=== PATIENT | female | born 1975 | race Caucasian/White ===

== ENCOUNTER → 2020-08-10 07:30 | Outpatient (CLI) | payer OTHER, BC, SELFPAY ==
--- NOTE | ~2020-08-10 | MM_ITS ---
EXAMINATION: MM scrn andres implant BI w tara HISTORY: Screening mammogram TECHNIQUE: Craniocaudal and mediolateral oblique 3-D tomosynthesis images with implant displacement a nd synthetic 2-D images were generated. Craniocaudal and mediolateral oblique views of the breasts wi thout implant displacement were obtained using full field digital mammography. CAD analysis was submi tted and interpreted. COMPARISON: 10/23/2018, 01/16/2015, 01/10/2015 BREAST PARENCHYMAL COMPOSITION: The breasts are heterogeneously dense, which may obscure small masses . FINDINGS: RIGHT BREAST: An asymmetry is present in the anterior third of the inner breast 4 cm from the nipple on the implant displaced craniocaudal view. LEFT BREAST: There is no evidence of suspicious mass, calcification, or architectural distortion to s uggest malignancy. There has been no significant interval change. IMPRESSION: 1. Right breast asymmetry on the implant displaced craniocaudal view. 2. Additional mammographic views and possible breast ultrasound are recommended. BI-RADS Category 0: Incomplete: Needs additional imaging evaluation. Reviewed, dictated and finalized at location A. IMPRESSION: 1. Right breast asymmetry on the implant displaced craniocaudal view. 2. Additional mammographic views and possible breast ultrasound are recommended . BI-RADS Category 0: Incomplete: Needs additional imaging evaluation.
== END ==
PROVIDERS: Visit Provider Obstetrics & Gynecology
DX: Z12.31 Encounter for screening mammogram for malignant neoplasm of breast (principal)
CPT/HCPCS: 77063; 77067

== ENCOUNTER 2021-01-01 16:16 | Emergency (ER) | payer OTHER, BC, SELFPAY ==
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
[2021-01-01 16:20] VITALS: BP 167/90; PULSE 87; RESP 17; TEMP 37.3; O2SAT 100
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
[2021-01-01] MEDS: diazePAM (*CRX) 5 MG TABLET PO (17:24)
== END 2021-01-01 17:50 | disposition home or self-care (01) ==
PROVIDERS: Emergency Provider Emergency Medicine; PCP Internal Medicine
DX: S16.1XXA Strain of muscle, fascia and tendon at neck level, initial encounter (principal); R10.9 Unspecified abdominal pain; R07.89 Other chest pain; I10 Essential (primary) hypertension; V49.40XA Driver injured in collision with unspecified motor vehicles in traffic accident, initial encounter
CPT/HCPCS: 71046; 72125; 99284; A9270

== ENCOUNTER → 2021-10-19 12:26 | Outpatient (CLI) | payer OTHER, BC, SELFPAY ==
--- NOTE | ~2021-10-19 | MM_ITS ---
EXAMINATION: MM scrn andres implant BI w tara HISTORY: Screening mammogram TECHNIQUE: Craniocaudal and mediolateral oblique 3-D tomosynthesis images with implant displacement a nd synthetic 2-D images were generated. Craniocaudal and mediolateral oblique views of the breasts wi thout implant displacement were obtained using full field digital mammography. CAD analysis was submi tted and interpreted. COMPARISON: Comparison to multiple prior studies sequentially, with oldest reviewed study dated 10/10. BREAST PARENCHYMAL COMPOSITION: The breasts are heterogeneously dense, which may obscure small masses . FINDINGS: There is no evidence of suspicious mass, calcification, or architectural distortion to sugg est malignancy in either breast. There has been no suspicious interval change. IMPRESSION: 1. No mammographic evidence of malignancy. 2. Recommend routine screening mammography in one year. BI-RADS Category 1: Negative Reviewed, dictated and finalized at location A. ULANT DIPPER
== END ==
PROVIDERS: Visit Provider Obstetrics & Gynecology
DX: Z12.31 Encounter for screening mammogram for malignant neoplasm of breast (principal)
CPT/HCPCS: 77063; 77067

== ENCOUNTER 2021-10-31 16:29 | Emergency (ER) | payer OTHER, BC, SELFPAY ==
[2021-10-31] VITALS (11 sets, daily range): BP systolic 147–167; BP diastolic 72–98; PULSE 64–78; RESP 16–20; TEMP 36.4–37; O2SAT 98–100
--- NOTE | ~2021-10-31 | XR_ITS ---
EXAMINATION: XR chest 2V 10/31/2021 17:14 INDICATION: Left chest pain PROCEDURE: 2 view chest COMPARISON: 01/01/2021 FINDINGS: The lungs are clear. The cardiomediastinal silhouette is within normal limits. There are no pleural effusions. There is no pneumothorax suspected. There is a healed left fifth rib fracture . IMPRESSION: 1: NO ACUTE CARDIOPULMONARY DISEASE. Reviewed, dictated and finalized at location A. CHISE FIELD CONSULTANT
--- NOTE | 2021-10-31 16:47 | ECG_ITS ---
Measurements Intervals [place] Rate: 68 P: 70 UT: 142 QRS: 51 QRSD: 92 T: 50 QT: 404 QTc: 432 Interpretive Statements SINUS RHYTHM NORMAL ECG Electronically Signed On 11-01-2021 8:04:36 STRAND GALVANIZER by Eric Alvarenga D.O.
[2021-10-31 17:13] LABS: Basophils Percent Auto 0.4 % (0.2-1.2); Eosinophils Absolute Auto 0.2 K/mm3 (0-0.3); Eosinophils Percent Auto 2.5 % (0-4.4); Hemoglobin 14.8 g/dL (12.0-15.0); Immature Granulocyte Absolute 0.03 K/mm3 (0.00-0.031); Immature Granulocyte Percent A 0.3 % (0-0.5); Lymphocytes Absolute Auto 2.59 K/mm3 (0.9-3.2); Mean Corpuscular HGB Conc 34.4 g/dl (32-36); Mean Corpuscular Hemoglobin 30.3 pg (26-34); Mean Corpuscular Volume 88.1 fl (80-100); Mean Platelet Volume 10.6 fl (7.4-10.4); Monocytes Absolute Auto 0.6 K/mm3 (0.1-0.6); Monocytes Percent Auto 7.1 % (2.6-8.5); Neutrophils Absolute Auto 5.4 K/mm3 (1.3-6.7); Neutrophils Percent Auto 60.7 % (45.5-73.1); Platelet Count Result 209 k/mm3 (150-375); Red Blood Count 4.88 M/mm3 (4.2-5.4); White Blood Count 8.9 K/mm3 (4.5-10.0)
[2021-10-31 17:22] LABS: Partial Thromboplastin Time 25.2 SECONDS (22.3-36.8); Prothrombin Time 12.7 Seconds (11.1-14.7)
[2021-10-31 17:30] LABS: Alanine Aminotransferase 17 U/L (4-35); Albumin Level 4.5 g/dL (3.5-5.1); Alkaline Phosphatase 102 U/L (38-126); Anion Gap 9 mmol/L (8-16); Aspartate Amino Transferase 27 U/L (14-36); Bilirubin,Total 0.5 mg/dL (0.2-1.3); Blood Urea Nitrogen 16 mg/dL (7-17); Calcium 9.1 mg/dL (8.4-10.2); Carbon Dioxide 29 mmol/L (22-30); Chloride 100 mmol/L (98-107); Estimated CRCL calculation 67 ml/min; Estimated Glomerular Filt Rate > 60; Glucose 99 mg/dL (65-110); Lipase 150 U/L (23-300); Potassium 3.8 mmol/L (3.4-5.0); Sodium 138 mmol/L (137-145)
[2021-10-31 17:42] LABS: Troponin I < 0.012 ng/mL (0.000-0.034)
--- NOTE | 2021-10-31 19:43 | ED.CHESTPAIN ---
HPI - Chest Pain General Chief Complaint: Chest Pain Stated Complaint: chest pain Time Seen by Provider: 10/31/21 19:43 Source: patient Mode of arrival: ambulatory Limitations: no limitations History of Present Illness HPI narrative: Patient is a 46-year-old female complain of chest pain, midsternal, tightness, 6 out of 10, radiating to left upper extremity that started 2 days ago. Patient also states that her blood pressure has been elevated for the past week. Patient states that her mother recently and all the symptoms started right after. Patient states that she has seen her primary care physician and was prescribed Xanax and diagnosed with anxiety. Patient also states that her primary care physician added carvedilol this past Friday for her blood pressure, she was on lisinopril. Patient has a history of hypertension. Patient denies any shortness of breath, abdominal pain, nausea, vomiting, diaphoresis, fever or chills. Related Data Home Medications Medication Instructions Recorded Confirmed multivitamin 1 tablet PO DAILY 05/31/20 12/01/20 Allergies Allergy/AdvReac Type Severity Reaction Status Date / Time acetaminophen Allergy Unknown NAUSEA Verified 12/01/20 14:33 hydrocodone Allergy Unknown NAUSEA Verified 10/31/21 19:50 propoxyphene AdvReac Unknown NAUSEA Verified 10/31/21 19:50 OXYCODONE HCL Allergy Mild NAUSEA Uncoded 10/31/21 19:50 Review of Systems Review of Systems: All systems reviewed & are unremarkable except as noted in HPI and below Constitutional: Constitutional: Denies body ache(s), Denies chills, Denies excessive sweating, Denies fatigue, Denies fever(s), Denies headache(s), Denies lethargy, Denies malaise, Denies weakness and Denies weight loss Eyes: Eyes: Denies blurry vision, Denies change in vision and Denies loss of vision ENT: Denies dizziness, Denies ear discharge, Denies headache(s), Denies lip swelling, Denies epistaxis, Denies nasal congestion, Denies neck pain, Denies throat swelling and Denies tongue swelling Cardiovascular: Cardiovascular: Denies diaphoresis, Denies rapid heart rate, Denies edema, Denies irregular heart rhythm, Denies lightheadedness, Denies palpitations, Denies dyspnea and Denies dyspnea on exertion Respiratory: Respiratory: Denies chest congestion, Denies cough, Denies hemoptysis, Denies dyspnea and Denies dyspnea on exertion Gastrointestinal: Gastrointestinal: Denies abdominal pain, Denies melena, Denies hematochezia, Denies diarrhea, Denies nausea, Denies vomiting and Denies hematemesis Musculoskeletal: Musculoskeletal: Denies abnormal gait, Denies deformity, Denies joint swelling, Denies limited range of motion, Denies neck pain and Denies numbness Neurologic: Denies Abnormal speech present, Denies abnormal gait, Denies confusion, Denies dizziness, Denies headache(s), Denies focal weakness, Denies loss of vision, Denies numbness, Denies Other visual disturbances, Denies Sensory deficit (Neuro) and Denies weakness Psychiatric: Psychiatric: Denies confusion, Denies depression, Denies auditory hallucinations, Denies homicidal ideation and Denies suicidal ideation Endocrine: Endocrine: Denies cold intolerance, Denies excessive sweating, Denies fatigue, Denies heat intolerance and Denies palpitations Hematologic/Lymphatic: Hematologic/Lymphatic: Denies easy bleeding and Denies easy bruising Allergic/Immunologic: Allergic/Immunologic: Denies lip swelling, Denies throat swelling and Denies tongue swelling PMFSH Past Medical History Medical History (Updated 10/31/21 @ 21:35 by James Pearson MD) Hypertension Surgical History Surgical History H/O: hysterectomy Family History Family History Sibling Patient's brother is in good health Father Patient's father is Mother Hypertension Family history of diabetes mellitus in fir
[2021-10-31 20:04] LABS: D Dimer 0.41 ug/mL (<0.48)
[2021-10-31 20:31] LABS: Troponin I < 0.012 ng/mL (0.000-0.034)
== END 2021-10-31 21:55 | disposition home or self-care (01) ==
PROVIDERS: Family Medicine; Emergency Provider Emergency Medicine; PCP Internal Medicine
DX: R07.89 Other chest pain (principal); I10 Essential (primary) hypertension
CPT/HCPCS: 36415; 71046; 80053; 83690; 84484; 85025; 85380; 85610; 85730; 93005; 99284

== ENCOUNTER 2021-11-20 10:07 | Outpatient (CLI) | payer OTHER, BC, SELFPAY ==
--- NOTE | 2021-11-20 11:00 | NEURO_ITS ---
Impression: # Complains of left upper extremity pain. # Normal nerve conduction study including F-waves. # Normal needle/EMG exam. # Clinical correlation recommended. Nerve Conduction Studies Anti Sensory Summary Table Stim Site NR Peak (ms) P-T Amp (?V) Site1 Site2 Delta-P (ms) Dist (cm) Jacob (m/s) Left Median Anti Sensory (2-3nd Digit) Wrist 2.7 69.5 Wrist 2-3nd Digit 2.7 14.0 52 Wrist 2.7 54.1 Wrist 2-3nd Digit 2.7 14.0 52 Left Radial Anti Sensory (Base 1st Digit) Wrist 2.1 25.3 Wrist Base 1st Digit 2.1 0.0 Left Ulnar Anti Sensory (5th Digit) Wrist 2.7 60.4 Wrist 5th Digit 2.7 14.0 52 Motor Summary Table Stim Site NR Onset (ms) O-P Amp (mV) Site1 Site2 Delta-0 (ms) Dist (cm) Jacob (m/s) Left Median Motor (Abd Poll Brev) Wrist 3.3 2.9 Elbow Wrist 4.8 27.0 56 Elbow 8.1 1.6 Left Ulnar Motor (Abd Dig Minimi) Wrist 2.7 6.1 A Elbow Wrist 4.8 29.0 60 A Elbow 7.5 5.0 F Wave Studies NR F-Lat (ms) L-R F-Lat (ms) Left Median (Mrkrs) (Abd Poll Brev) 24.73 Left Ulnar (Mrkrs) (Abd Dig Min) 25.50 EMG Side Muscle Nerve Root Ins Act Fibs Amp Dur Recrt Comment Left 1stDorInt Ulnar C8-T1 Nml Nml Nml Nml Nml Left Ext Indicis Radial (Post Int) C7-8 Nml Nml Nml Nml Nml Left Ext Digitorum Radial (Post Int) C7-8 Nml Nml Nml Nml Nml Left BrachioRad Radial C5-6 Nml Nml Nml Nml Nml Left PronatorTeres Median C6-7 Nml Nml Nml Nml Nml Left Abd Poll Brev Median C8-T1 Nml Nml Nml Nml Nml Left Biceps Musculocut C5-6 Nml Nml Nml Nml Nml Left Triceps Radial C6-7-8 Nml Nml Nml Nml Nml Left ABD Dig Min Ulnar C8-T1 Nml Nml Nml Nml Nml Left Abd Poll Long Radial (Post Int) C7-8 Nml Nml Nml Nml Nml MTDD
== END 2021-11-20 10:08 | disposition home or self-care (01) ==
LOC: ANHNEURO 10:12
PROVIDERS: PCP Internal Medicine; Visit Provider Orthopaedic Surgery
DX: R20.0 Anesthesia of skin (principal); M25.512 Pain in left shoulder
CPT/HCPCS: 95886; 95909

== ENCOUNTER 2022-06-18 10:58 | Outpatient (CLI) | payer BC, SELFPAY ==
--- NOTE | ~2022-06-18 | US_ITS ---
US retroperitoneal comp 06/18/2022 11:20 Procedure: Realtime transabdominal ultrasound of the kidneys and bladder. Indication: Essential hypertension Comparison: No prior studies for comparison. Findings: Renal echotexture is normal bilaterally without hydronephrosis, contour deforming mass or r enal calculus. The right kidney measures 10.5 cm and left kidney measures 11.6 cm. Bladder within no rmal limits. Impression: 1: Unremarkable renal ultrasound. No stones, masses or hydronephrosis. Reviewed, dictated and finalized at location A. Impression: 1: Unremarkable renal ultrasound. No stones, masses or hydronephrosis.
== END 2022-06-18 10:59 | disposition home or self-care (01) ==
LOC: ANHIMG 11:00
PROVIDERS: PCP Internal Medicine; Visit Provider Internal Medicine
DX: I10 Essential (primary) hypertension (principal)
CPT/HCPCS: 76770

== ENCOUNTER 2022-06-22 07:28 | Outpatient (CLI) | payer BC, SELFPAY ==
--- NOTE | 2022-06-22 07:41 | ECHO_ITS ---
Patient Info Name: Judi Isaacs Age: 47 years : 1975 Gender: Female Ht: 65 in Wt: 135 lbs BSA: 1.68 m2 HR: 68 bpm BP: 138 / 87 mmHg Technical Quality: Fair Exam Date: 06/22/2022 8:03 AM Exam Location: [facility] Patient Status: Outpatient Admit Date: 06/22/2022 Staff Ordering Physician: Vinod Murray DO Marketing Editor: Vita Nunes RDCS Attending Provider: Vinod Murray DO Referring Physician: Terri BRAUN; Exam Type: CA echo doppler color flow Study Info Indications I10 - Essential (primary) hypertension Complete two-dimensional, color flow and Doppler transthoracic echocardiogram is performed. Summary 1. Complete two-dimensional, color flow and Doppler transthoracic echocardiogram is performed. 2. Left ventricular chamber dimension is normal. 3. Left ventricular systolic function is normal, estimated at 60-65%. 4. The left ventricular diastolic function is normal. 5. E/e' 5 is not elevated. 6. No pulmonary hypertension, estimated pulmonary arterial systolic pressure is 24 mmHg. Left Ventricle E/e' 5 is not elevated. Left ventricular chamber dimension is normal. Left ventricular systolic function is normal, estimated at 60-65%. The left ventricular diastolic function is normal. Right Ventricle Right ventricular chamber dimension is normal. Right ventricular systolic function is normal. Left Atria Left atrial chamber dimension is normal. Right Atria Right atrial chamber dimension is normal. Aortic Valve The aortic valve is probable trileaflet. There is no aortic valve stenosis. There is no aortic valve regurgitation. Pulmonic Valve There is no pulmonic regurgitation. Mitral Valve There is no mitral valve stenosis. There is no mitral valve regurgitation. Tricuspid Valve There is no tricuspid valve regurgitation. No pulmonary hypertension, estimated pulmonary arterial systolic pressure is 24 mmHg. Pericardium/Pleural There is no pericardial effusion. Inferior Vena Cava Normal inferior vena cava with >50% collapse upon inspiration consistent with normal right atrial pressure, 5 mmHg. Aorta The aortic root size at the sinus of Valsalva is normal. Left Ventricular Outflow Tract Name Value Normal LVOT 2D LVOT Diameter 2.0 cm LVOT Doppler LVOT Peak Gradient 5 mmHg LVOT Mean Gradient 3 mmHg LVOT VTI 23 cm LVOT VTI/AV VTI Ratio 1.0 LVOT Stroke Volume 72 ml LVOT CO 15.1 l/min LVOT CI 9.0 l/min/m2 Pulmonic Valve Name Value Normal PV Doppler PV Peak Gradient 2 mmHg Mitral Valve
== END 2022-06-22 07:29 | disposition home or self-care (01) ==
LOC: ANHCARD 07:29
PROVIDERS: PCP Internal Medicine; Visit Provider Internal Medicine
DX: I10 Essential (primary) hypertension (principal)
CPT/HCPCS: 93306

== ENCOUNTER → 2023-01-15 15:56 | Outpatient (CLI) | payer BC, SELFPAY ==
--- NOTE | ~2023-01-15 | MM_ITS ---
EXAMINATION: MM scrn andres implant BI w tara HISTORY: Screening mammogram TECHNIQUE: Craniocaudal and mediolateral oblique 3-D tomosynthesis images with implant displacement a nd synthetic 2-D images were generated. Craniocaudal and mediolateral oblique views of the breasts wi thout implant displacement were obtained using full field digital mammography. CAD analysis was submi tted and interpreted. COMPARISON: 10/19/2021, 08/10/2020, 10/23/2018 BREAST PARENCHYMAL COMPOSITION: The breasts are heterogeneously dense, which may obscure small masses . FINDINGS: There is no evidence of suspicious mass, calcification, or architectural distortion to sugg est malignancy in either breast. There has been no suspicious interval change. IMPRESSION: 1. No mammographic evidence of malignancy. 2. Recommend routine screening mammography in one year. BI-RADS Category 1: Negative Reviewed, dictated and finalized at location A. WAY SWITCHMAN
== END ==
PROVIDERS: PCP Internal Medicine; Visit Provider Obstetrics & Gynecology
DX: Z12.31 Encounter for screening mammogram for malignant neoplasm of breast (principal)
CPT/HCPCS: 77063; 77067

== ENCOUNTER 2024-10-29 02:50 | Day surgery (SDC) | payer OTHER, BC, SELFPAY ==
--- NOTE | 2024-10-28 13:16 | P.PNAN_ITS ---
Anes - Initial Pre Proc Eval Procedure: Operation Date: 10/29/24 13:00 Proposed Procedures p Screening Colonoscopy - Jimbo Forrester MD <Onofre Porras, DO - Last Filed: 10/28/24 13:17> Date/Time: 10/28/24 13:16 <Onofre Porras DO - Last Filed: 10/28/24 13:17> Surgeon: Jimbo Forrester MD <Onofre Porras, DO - Last Filed: 10/28/24 13:17> Pre Op Diagnosis: Screening for malignant neoplasm of colon <Oonfre Porras DO - Last Filed: 10/28/24 13:17> Patient Data Age: 49 Gender: F Height: Weight: <Onofre Porras, DO - Last Filed: 10/28/24 13:17> Allergies Allergy/AdvReac Type Severity Reaction Status Date / Time acetaminophen Allergy Unknown NAUSEA Verified 10/29/24 12:08 hydrocodone Allergy Unknown NAUSEA Verified 10/29/24 12:08 propoxyphene AdvReac Unknown NAUSEA Verified 10/29/24 12:08 OXYCODONE HCL Allergy Mild NAUSEA Uncoded 10/29/24 12:08 <Onofre Porras DO - Last Filed: 10/28/24 13:17> Home Medications ?Medication ?Instructions ?Recorded ?Confirmed ?Type multivitamin (Multiple Vitamins 1 tablet PO DAILY 05/31/20 10/29/24 History tablet) lisinopril 40 mg tablet 40 mg PO DAILY #90 tabs 09/18/23 10/29/24 Rx chlorthalidone 25 mg tablet 25 mg PO DAILY 10/18/24 10/29/24 History <Onofre Porras, DO - Last Filed: 10/28/24 13:17> Patient hx anesthesia problems: none <Emigdio Hansen CRNA - Last Filed: 10/29/24 12:32> Family hx anesthesia problems: none <Emigdio Hansen CRNA - Last Filed: 10/29/24 12:32> Results Review: All pre-operative results and documents have been reviewed as part of the pre-operative evaluation. <Onofre Porras DO - Last Filed: 10/28/24 13:17> [facility] Past Medical History Medical History: Medical History Hypertension <Onofre Porras DO - Last Filed: 10/28/24 13:17> Surgical History Surgical History: Surgical History H/O: hysterectomy <Onofre Porras DO - Last Filed: 10/28/24 13:17> Family History Family History: Family History Sibling Patient's brother is in good health Father Patient's father is Mother Hypertension Family history of diabetes mellitus in first degree relative <Onofre Porras DO - Last Filed: 10/28/24 13:17> Social History Social History: Social History Smoking status: Never smoker Second hand tobacco smoke exposure: No Alcohol intake: current Drinks per week: 2 Substance use: never Gender identity (if verbalized by the patient): Female Spiritual care concerns: No <Onofre Porras DO - Last Filed: 10/28/24 13:17> Anes - Eval Final PreProcedure Day of Procedure Patient weight: normal <Emigdio Hansen CRNA - Last Filed: 10/29/24 12:32> Heart: regular rate and rhythm <Emigdio Hansen CRNA - Last Filed: 10/29/24 12:32> Lungs: clear to auscultation <Emigdio Hansen CRNA - Last Filed: 10/29/24 12:32> Airway: Mallampati scale class II <Emigdio Hansen CRNA - Last Filed: 10/29/24 12:32> Neurological: alert and oriented <Emigdio Hansen CRNA - Last Filed: 10/29/24 12:32> Last oral intake: >/= 8 hours <Emigdio Hansen CRNA - Last Filed: 10/29/24 12:32> ASA classification: II <Emigdio Hansen CRNA - Last Filed: 10/29/24 12:32> Emergent: no <Emigdio Hansen CRNA - Last Filed: 10/29/24 12:32> Anesthetic plan: proceed <Emigdio Hansen CRNA - Last Filed: 10/29/24 12:32> Anesthesia type and monitoring: general GIVS <Emigdio Hansen CRNA - Last Filed: 10/29/24 12:32>
[2024-10-29 12:09] VITALS: BP 112/68; PULSE 62; RESP 18; TEMP 36.4; O2SAT 100
[2024-10-29] MEDS: LACTATED RINGERS 1,000 ML 150 ML IV CONT (12:21)
--- NOTE | 2024-10-29 12:56 | PM.IMHP ---
H&P: HPI History of Present Illness Date/Time: 10/29/24 12:56 Chief Complaint: Screening colonoscopy Narrative: This is the patient's first colonoscopy. There are no GI symptoms and there is no family history of colorectal cancer. Review of Systems Review of Systems: All systems reviewed & are unremarkable except as noted in HPI and below PMFSH Past Medical History Medical History (Updated 10/29/24 @ 12:57 by Jimbo Forrester MD) Hypertension Surgical History Surgical History H/O: hysterectomy Family History Family History Sibling Patient's brother is in good health Father Patient's father is Mother Hypertension Family history of diabetes mellitus in first degree relative Social History Social History Smoking status: Never smoker Second hand tobacco smoke exposure: No Alcohol intake: current Drinks per week: 2 Substance use: never Gender identity (if verbalized by the patient): Female Spiritual care concerns: No Meds Home Medications and Allergies Home Medications ?Medication ?Instructions ?Recorded ?Confirmed ?Type multivitamin (Multiple Vitamins 1 tablet PO DAILY 05/31/20 10/29/24 History tablet) lisinopril 40 mg tablet 40 mg PO DAILY #90 tabs 09/18/23 10/29/24 Rx chlorthalidone 25 mg tablet 25 mg PO DAILY 10/18/24 10/29/24 History Allergies Allergy/AdvReac Type Severity Reaction Status Date / Time acetaminophen Allergy Unknown NAUSEA Verified 10/29/24 12:08 hydrocodone Allergy Unknown NAUSEA Verified 10/29/24 12:08 propoxyphene AdvReac Unknown NAUSEA Verified 10/29/24 12:08 OXYCODONE HCL Allergy Mild NAUSEA Uncoded 10/29/24 12:08 Vital Signs Vital Signs - 24 hr 10/29/24 12:09 Temperature 97.5 F L Pulse Rate 62 Respiratory Rate 18 Blood Pressure 112/68 Pulse Oximetry 100 Oxygen Delivery Room Air Exam Const: General: cooperative and healthy appearing Resp: Effort & Inspection: normal respiratory effort and able to speak in complete sentences Auscultation: clear to auscultation bilaterally Cardio: Rate: regular rate Rhythm: regular rhythm GI: Inspection: normal to inspection GI Palp: No No hepatosplenomegaly present Auscultation: normal bowel sounds Rectal Exam: deferred Skin: General skin exam: normal color Psych: Appearance: grossly normal Mental Status: mental status grossly normal Assessment and Plan Assessment and plan (1) Encounter for screening colonoscopy: Code(s): Z12.11 - Encounter for screening for malignant neoplasm of colon Status: Acute Assessment and Plan: The patient is deemed a good candidate for the procedure. Consent signed. Will proceed.
[2024-10-29 13:25] VITALS: BP 119/69; PULSE 62; RESP 18; O2SAT 99
[2024-10-29 13:35] VITALS: BP 123/61; PULSE 60; RESP 18; O2SAT 100
[2024-10-29 13:45] VITALS: BP 114/56; PULSE 58; RESP 18; O2SAT 100
== END 2024-10-29 14:03 | disposition home or self-care (01) ==
PROVIDERS: PCP Internal Medicine; Referring Provider Internal Medicine; Visit Provider Internal Medicine Gastroenterology
PROC: 0DJD8ZZ Inspection of Lower Intestinal Tract, Via Natural or Artificial Opening Endoscopic (ICD-10-PCS; CPT 45378; principal; 2024-10-29 13:00)
DX: Z12.11 Encounter for screening for malignant neoplasm of colon (principal); I10 Essential (primary) hypertension; Z98.890 Other specified postprocedural states
CPT/HCPCS: 45378; J2704; J7120

== ENCOUNTER 2025-04-09 09:19 | Emergency (ER) | payer OTHER, BC, SELFPAY ==
--- NOTE | ~2025-04-09 | XR_ITS ---
XR hand LT min 3V 04/09/2025 09:44 INDICATION: Left hand pain PROCEDURE: 3 views left hand COMPARISON: No prior studies for comparison. FINDINGS: Fracture, dislocation or subluxation is not identified. The soft tissues appear within norm al limits. No foreign bodies are identified. IMPRESSION: 1: NO ACUTE BONE OR JOINT ABNORMALITY IDENTIFIED. Reviewed, dictated and finalized at location A.
[2025-04-09 09:33] VITALS: BP 139/83; PULSE 71; RESP 16; TEMP 36.8; O2SAT 99
--- NOTE | 2025-04-09 10:16 | ED_ITS ---
HPI - Extremity Injury (Upper) General Chief Complaint: Extremity Injury, Upper Stated Complaint: INJURED FINGER Time Seen by Provider: 04/09/25 10:16 Source: patient, RN notes reviewed and old records reviewed Mode of arrival: ambulatory Limitations: no limitations History of Present Illness HPI narrative: 50-year-old female presents to the [facility] with left 4th finger pain post fall. No bruising or swelling noted. Tenderness to the MCP. Patient reports that it feels stiff with movement. Onset (ago): day(s) (1) Related Data Allergies Allergy/AdvReac Type Severity Reaction Status Date / Time acetaminophen Allergy Unknown NAUSEA Verified 04/09/25 09:46 hydrocodone Allergy Unknown NAUSEA Verified 04/09/25 09:46 propoxyphene AdvReac Unknown NAUSEA Verified 04/09/25 09:46 OXYCODONE HCL Allergy Mild NAUSEA Uncoded 04/09/25 09:46 Review of Systems Review of Systems: All systems reviewed & are unremarkable except as noted in HPI and below Constitutional: Constitutional: Reports no additional constitutional complaints Cardiovascular: Cardiovascular: Reports no additional cardiovascular complaints, Denies chest pain and Denies dyspnea Respiratory: Respiratory: Reports no additional respiratory complaints, Denies chest congestion, Denies cough and Denies dyspnea Musculoskeletal: Musculoskeletal: Reports as per HPI Integumentary/Breasts: Skin/Breast: Reports system reviewed and no additional complaints, except as docu PMFSH Past Medical History Medical History Hypertension Surgical History Surgical History H/O: hysterectomy Family History Family History Sibling Patient's brother is in good health Father Patient's father is Mother Hypertension Family history of diabetes mellitus in first degree relative Social History Social History Smoking status: Never smoker Second hand tobacco smoke exposure: No Alcohol intake: current Drinks per week: 2 Substance use: never Gender identity (if verbalized by the patient): Female Spiritual care concerns: No Comments At the time of my signature, I reviewed and agree with the nursing past medical, surgical, social, and family history. There is no relevant family history pertinent to the patient complaint. Exam Const: General: cooperative, healthy appearing, comfortable, no acute distress, well developed, alert and well nourished Nutritional Appearance: well nourished Orientation/consciousness: patient oriented x3 Limitations: no limitations HENMT: Head: normal to inspection Eyes: General: appearance normal, both eyes and all related structures Alignment and Position: alignment normal Neck: Neck: normal visual inspection, full ROM, no lymphadenopathy and no meningeal signs Chest: Chest palpation & inspection: normal inspection of the chest Resp: Effort & Inspection: normal respiratory effort and able to speak in complete sentences Cardio: Rate: regular rate Skin: General skin exam: normal color and no rashes or lesions noted Neuro: General: patient oriented x3, gait normal, moves all extremities and no meningeal signs Cognition (Neuro): normal cognition Speech: normal speech Gait exam (Neuro): Normal gait present Extrem: General: normal to inspection, full ROM, capillary refill normal and normal gait Left upper extremity: hand normal capillary refill, neuromotor exam normal Details: wrist extension normal, thumb opposition normal, thumb IP flexion normal, thumb ADduction normal and fingers 2-5 ABduction normal, tenderness of the dorsal hand over the 4th metacarpal and of the 4th digit at the MCP joint, vascular exam radial pulse present and normal capillary refill, normal ROM of fingers and no swelling; no swelling, no abrasions, no lacerations and no ecchymosis Psych: Appearance: grossly normal and well kempt Mental Status: mental status grossly normal Speech and movement: Normal speech and movement present and Clear speech present Affect: normal affect Attitude: cooperative Course Course Level of Care: Express Care Visit Vital Signs Vital signs: Vital Signs Temperature 98.3 F 04/09/25 09:33 Pulse Rate 71 04/09/25 09:33 Respiratory Rate 16 04/09/25 09:33 Blood Pressure 139/83 04/09/25 09:33 Pulse Oximetry 99 04/09/25 09:33 Temperature 98.3 F 04/09/25 09:33 Pulse Rate 71 04/09/25 09:33 Respiratory Rate 16 04/09/25 09:33 Blood Pressure 139/83 04/09/25 09:33 Pulse Oximetry 99 04/09/25 09:33 Reviewed MDM - Extremity Injury (Upper) MDM Narrative Medical decision making narrative: Patient sitting in exam patient is nontoxic vitals are stable. Patient presents for 4th finger pain left hand post fall. No bruising swelling noted. X-ray negative. Patient is appropriate for outpatient treatment with close follow-up Discharge instructions reviewed with patient, as well as provided in writing per nursing staff. The instructions also include specific and strict return/GO TO THE ER as well as f/u information. All questions have been answered, and the patient deny any further questions with discharge and discharge plan. Some parts of this dictation were generated by voice recognition software and may contain typographical and/or grammatical inaccuracies. Differential Diagnosis Differential diagnosis: Likely fracture of wrist, finger sprain, fracture of hand and other (Finger sprain, finger fracture) Imaging Data Radiologist's impression: XR hand LT min 3V 04/09/2025 09:44 INDICATION: Left hand pain PROCEDURE: 3 views left hand COMPARISON: No prior studies for comparison. FINDINGS: Fracture, dislocation or subluxation is not identified. The soft tissues appear within normal limits. No foreign bodies are identified. IMPRESSION: 1: NO ACUTE BONE OR JOINT ABNORMALITY IDENTIFIED. Critical Care Time Critical Care Time Critical Care Time: No Discharge Plan Discharge Clinical Impression: Contusion of finger of left hand Qualifiers: Encounter type: initial encounter Finger: ring finger Damage to nail status: without damage Qualified Code(s): S60.042A - Contusion of left ring finger without damage to nail, initial encounter Contusion of hand, left Qualifiers: Encounter type: initial encounter Qualified Code(s): S60.222A - Contusion of left hand, initial encounter Patient Disposition: Home Condition: Stable Instructions: Contusion in Adults (ED), Finger Sprain (ED) Additional Instructions: Your Xray did not show a fracture. Ice should be applied to help reduce swelling. It can be used for 20 to 30 minutes, every 2-3 hours while awake. Do not apply ice directly to your skin. You can alternate ibuprofen 600mg and Tylenol 650mg every 4 hours as needed for pain Please schedule a follow-up visit with your personal physician for further evaluation and treatment within 2 weeks especially if symptoms persist. For new or worsening symptoms go directly to the emergency room Patient Language: Citizen Of [place] Prescriptions: No Action lisinopril 40 mg tablet 40 mg PO DAILY Qty: 90 0RF Follow-up/Referrals: MadalynMaria Antonia, SET DECORATOR [Primary Care Provider] - 2 Weeks ( [facility] follow-up) Time of Disposition: 10:22
== END 2025-04-09 10:27 | disposition home or self-care (01) ==
PROVIDERS: Emergency Provider Nurse Practitioner; PCP Nurse Practitioner Family
DX: S60.042A Contusion of left ring finger without damage to nail, initial encounter (principal); W19.XXXA Unspecified fall, initial encounter; S60.222A Contusion of left hand, initial encounter; I10 Essential (primary) hypertension
CPT/HCPCS: 73130; 99213; G0463